=== PATIENT | female | born 1965 | race Caucasian/White ===

== ENCOUNTER → 2018-01-16 | Outpatient (CLI) | payer BC ==
[2014-03-05 13:35] VITALS: BP 135/85
[~2018-01-16] MED LIST: HYDR-971 PO
--- NOTE | 2018-01-16 17:15 | KCIC ---
Bilateral digital screening mammograms with 3-D tomosynthesis: Reason for examination: Routine screening. Comparison is made to previous studies dated 02/05/2015 and 02/12/2014. Bilateral mammograms in CC and oblique projections were obtained with 2-D imaging and 3-D tomosynthesis imaging on a Siemens Inspiration unit and reviewed on the workstation. Interpretation was made with the benefit of CAD. The skin and nipples show no abnormalities. No abnormal axillary lymph nodes are seen. The breast parenchyma is heterogeneously dense. (Breast density: Category C.) There appears to be new architectural distortion in the subareolar 5:00 to 6:00 position of the left breast. Recommend further evaluation with ultrasound. There are no other masses, suspicious calcifications or architectural distortion. Impression: New architectural distortion in the subareolar 5:00 to 6:00 position of the left breast. Recommend further evaluation with ultrasound. Your patient's mammogram demonstrates that she has dense breast tissue (breast density category C or D), which could hide abnormalities, and if she has other risk factors for breast cancer that have been identified, she might benefit from supplemental screening tests that may be suggested by you as her ordering physician. Dense breast tissue, in and of itself, is a relatively common condition. Therefore, this information is not provided to cause undue concern, but rather to raise your awareness and to promote discussion with your patient regarding the presence of other risk factors, in addition to dense breast tissue. Your patient's mammography results will be sent to her. BI-RAD Category neuro: Incomplete. Needs additional imaging evaluation. "Our facility is accredited by the [employer]ammography [employer]." This patient's information has been entered into a reminder system for the patient to be notified with the results of her examination and a target date for the next mammogram. Electronically signed by: Rufina James MD (01/16/2018 5:12 PM) [facility]
== END | disposition home or self-care (01) ==
LOC: KCIC MAMMO 09:29
DX: Z12.31 Encounter for screening mammogram for malignant neoplasm of breast (principal)
CPT/HCPCS: 77063; 77067

== ENCOUNTER → 2018-02-05 | Outpatient (CLI) | payer BC ==
[2014-03-05 13:35] VITALS: BP 135/85
[~2018-02-05] MED LIST changes: +HYDR-3164 PO; -HYDR-971 PO
--- NOTE | 2018-02-05 18:27 | KCIC ---
Left breast ultrasound: Reason for examination: Possible architectural distortion on mammographic screening. Comparison is made to mammographic exam dated 01/16/2018. Ultrasound examination of the left breast was performed in the area of mammographic concern and in the retroareolar and axillary regions. There are dilated ductal structures in the retroareolar position. There are no discrete cystic or solid nodules. There is parenchymal scarring from previous surgery in the retroareolar position which may correspond to the area of mammographic concern. No abnormal appearing lymph nodes are seen in the axilla. IMPRESSION: Surgical scarring in the 5:00 to 6:00 position. Ductal ectasia present. No suspicious abnormality seen. Recommend 6 month follow-up with mammograms and ultrasound of the left breast. BI-RADS Category 3: Probably Benign. "Our facility is accredited by the [employer]amm[employer]." This patient's information has been entered into a reminder system for the patient to be notified with the results of her examination and a target date for the next mammogram. Electronically signed by: Rufina James MD (02/05/2018 6:24 PM) [facility]
== END | disposition home or self-care (01) ==
LOC: KCIC US 13:13
DX: N60.42 Mammary duct ectasia of left breast (principal)
CPT/HCPCS: 76641

== ENCOUNTER → 2019-02-07 | Outpatient (CLI) | payer BC ==
[2014-03-05 13:35] VITALS: BP 135/85
--- NOTE | 2019-02-07 16:13 | KCIC ---
Bilateral diagnostic digital mammograms: Reason for examination: Follow-up left breast. Routine screening right breast. Comparison is made to previous studies dated 01/16/2018 and 02/05/2015. Interpretation was made with the benefit of CAD. The skin and nipples show no abnormalities. No abnormal axillary lymph nodes are seen. The breast parenchyma is heterogeneously dense. (Breast density: Category C.) There continues to be some parenchymal asymmetry in the upper outer quadrant of the left breast which is unchanged. There are no new dominant masses, suspicious calcifications or architectural distortion. Impression: No evidence of malignancy. Ultrasound to follow. Your patient's mammogram demonstrates that she has dense breast tissue (breast density category C or D), which could hide abnormalities, and if she has other risk factors for breast cancer that have been identified, she might benefit from supplemental screening tests that may be suggested by you as her ordering physician. Dense breast tissue, in and of itself, is a relatively common condition. Therefore, this information is not provided to cause undue concern, but rather to raise your awareness and to promote discussion with your patient regarding the presence of other risk factors, in addition to dense breast tissue. Your patient's mammography results will be sent to her. BI-RAD Category 0: Incomplete. Needs additional imaging evaluation. Left breast ultrasound: Comparison is made to previous examination dated 02/05/2018. Ultrasound examination of the left breast and axilla was performed. In the 2:00 position 4 cm from the nipple, there is a small 5 mm hypoechoic circumscribed lesion consistent with focal fibrocystic change. In the retroareolar position there is some ductal ectasia but no discrete cystic or solid nodules. No abnormal appearing lymph nodes are seen in the axilla. IMPRESSION: Small 5 mm fibrocystic lesion at the 2:00 position. No suspicious abnormality seen. Recommend 6 month follow-up with ultrasound. BI-RADS Category 3: Probably Benign. "Our facility is accredited by the [employer]amm[employer]." This patient's information has been entered into a reminder system for the patient to be notified with the results of her examination and a target date for the next mammogram. Electronically signed by: Rufina James MD (02/07/2019 4:10 PM) [facility]
== END | disposition home or self-care (01) ==
LOC: KCIC MAMMO 09:41
PROVIDERS: ATTEND Family Medicine
DX: N64.89 Other specified disorders of breast (principal)
CPT/HCPCS: 76641; 77066

== ENCOUNTER → 2019-10-22 | Outpatient (CLI) | payer BC ==
[2014-03-05 13:35] VITALS: BP 135/85
--- NOTE | 2019-10-22 12:45 | KCIC ---
Left breast ultrasound: Reason for examination: Follow-up nodules. Comparison is made to previous studies dated 02/07/2019 and 02/05/2018. Left breast ultrasound including the axillary region of the left breast was performed. There continues to be a small 5.2 mm hypoechoic lesion in parallel orientation consistent with fibroadenoma at the 2:00 position 4 cm from the nipple. There is some ductal ectasia in the retroareolar 12:00 position. No other cystic or solid nodules are seen. No abnormal appearing lymph nodes are seen in the axilla. IMPRESSION: Stable nodule at the 2:00 position measuring 5.2 mm in size consistent with a probable fibroadenoma. Recommend continued 6 month follow-up ultrasound which can be performed at the time of bilateral mammograms. BI-RADS Category 3: Probably Benign. "Our facility is accredited by the [employer] Mammography [employer]." This patient's information has been entered into a reminder system for the patient to be notified with the results of her examination and a target date for the next mammogram. Electronically signed by: Rufina James MD (10/22/2019 12:42 PM) [id number]
== END | disposition home or self-care (01) ==
LOC: KCIC US 10:54
PROVIDERS: ATTEND Nurse Practitioner Family
DX: N60.42 Mammary duct ectasia of left breast (principal); N63.21 Unspecified lump in the left breast, upper outer quadrant
CPT/HCPCS: 76641

== ENCOUNTER → 2021-05-24 | Outpatient (CLI) | payer BC ==
[2014-03-05 13:35] VITALS: BP 135/85
--- NOTE | 2021-05-24 13:38 | KCIC ---
Bilateral diagnostic digital mammograms with 3-D tomosynthesis: Reason for examination: Follow-up left breast nodule. Comparison is made to previous study dated 02/07/2019. Bilateral mammograms in CC and oblique projections were obtained with 2-D imaging and 3-D tomosynthes is imaging on a Siemens Inspiration unit and reviewed on the workstation. Interpretation was made wit h the benefit of CAD. The skin and nipples show no abnormalities. No abnormal axillary lymph nodes are seen. The breast par enchyma is heterogeneously dense. (Breast density: Category C.) There continues to be some nodular as ymmetry at the 2:00 position posteriorly in the left breast which is stable. There are no new dominan t masses, suspicious calcifications or architectural distortion. Impression: Continued presence of some nodular asymmetry at the 2:00 position posteriorly in the left breast. Ult rasound to follow. Your patient's mammogram demonstrates that she has dense breast tissue (breast density category C or D), which could hide abnormalities, and if she has other risk factors for breast cancer that have bee n identified, she might benefit from supplemental screening tests that may be suggested by you as her ordering physician. Dense breast tissue, in and of itself, is a relatively common condition. Therefo re, this information is not provided to cause undue concern, but rather to raise your awareness and t o promote discussion with your patient regarding the presence of other risk factors, in addition to d ense breast tissue. Your patient's mammography results will be sent to her. BI-RAD Category 0: Incomplete. Needs additional imaging evaluation. Left breast ultrasound: Comparison is made to previous studies dated 10/22/2019 and 02/07/2019. Ultrasound examination of the left breast and axilla was performed. At the 2:00 position 4 cm from the nipple, there continues to be a 5.1 x 4.3 mm hypoechoic fibrocysti c type lesion present which is stable. No new cystic or solid nodules are seen. There is some mild du ctal ectasia. No abnormal appearing lymph nodes are seen in the left axilla. IMPRESSION: Stable 5.1 mm fibrocystic type nodule at the 2:00 position. No other focal abnormality seen in the le ft breast. Recommend routine mammographic follow-up. BI-RADS Category 2: Benign. "Our facility is accredited by the [employer] Mammography [employer]." This patient's information has been entered into a reminder system for the patient to be notified wit h the results of her examination and a target date for the next mammogram. Electronically signed by: Rufina James MD (05/24/2021 1:35 PM) [email or web address]
== END ==
LOC: KCIC MAMMO 08:50
PROVIDERS: ATTEND Family Medicine
DX: N63.21 Unspecified lump in the left breast, upper outer quadrant (principal)
CPT/HCPCS: 76641; 77066; G0279; 77062